=== PATIENT | male | born 1975 | race Caucasian/White ===

== ENCOUNTER 2020-07-19 17:39 | Outpatient (CLI) | payer BC, SELFPAY ==
--- NOTE | ~2020-07-19 | XR_ITS ---
EXAMINATION: XR chest 2V EXAM DATE: 07/19/2020 18:05 INDICATION: Cough and shortness of breath. Recent COVID-19 diagnosis. TECHNIQUE: Frontal and lateral projections of the chest obtained and reviewed. There is no prior abdias dy for comparison. FINDINGS: The lungs are clear. There are no pleural effusions. The cardiomediastinal silhouette is within normal limits. There is no pneumothorax suspected. The bones and soft tissues are unremarkab le. IMPRESSION: Normal chest x-ray exam. Reviewed, dictated and finalized at location A. IMPRESSION: Normal chest x-ray exam.
== END 2020-07-19 17:40 | disposition home or self-care (01) ==
PROVIDERS: PCP Family Medicine; Visit Provider Nurse Practitioner Family
DX: R05 Cough (principal); R06.02 Shortness of breath
CPT/HCPCS: 71046

== ENCOUNTER 2022-06-30 19:28 | Emergency (ER) | payer BC, SELFPAY ==
--- NOTE | 2022-06-30 19:31 | ED.EXTPRO ---
HPI - Extremity Problem General Chief complaint: Skin/Abscess/Foreign Body Stated complaint: left foot infection Time Seen by Provider: 06/30/22 19:34 Source: patient, RN notes reviewed and old records reviewed Mode of arrival: ambulatory Limitations: no limitations History of Present Illness HPI Narrative: 46-year-old male presents to the [facility] with a infection to his left toe between toes 3 ,4 and 5. Has swelling. Reports taking amoxicillin that was leftover , someone else's prescription with no relief. Symptoms started a week ago's today. Has been pouring alcohol and peroxide on it hoping to dried up. Also has been applying a cream. States is becoming more discomfort. Has full range of motion, positive pedal pulse. Sensation intact in all 5 toes with capillary refill under 2 seconds. Related Data Allergies Allergy/AdvReac Type Severity Reaction Status Date / Time No Known Allergies Allergy Verified 06/30/22 19:31 Review of Systems Review of Systems: All systems reviewed & are unremarkable except as noted in HPI and below Constitutional: Constitutional: Reports no additional constitutional complaints, Denies chills and Denies fever(s) Eyes: Eyes: Reports no additional eye complaints ENT: Reports system reviewed and no additional complaints, except as documented Cardiovascular: Cardiovascular: Reports no additional cardiovascular complaints Respiratory: Respiratory: Reports no additional respiratory complaints Gastrointestinal: Gastrointestinal: Reports no additional gastrointestinal complaints Musculoskeletal: Musculoskeletal: Reports no additional musculoskeletal complaints Integumentary/Breasts: Skin/Breast: Reports as per HPI Neurologic: Reports system reviewed and no additional complaints, except as documented Psychiatric: Psychiatric: Reports no additional psychiatric complaints Allergic/Immunologic: Allergic/Immunologic: Reports no additional allergic/immunologic complaints [facility] Past Medical History Medical History BMI 29.0-29.9,adult BMI 30.0-30.9,adult Family History Family History Mother Hypertension Grandparent Cerebrovascular accident Social History Social History Smoking status: Never smoker Alcohol intake: never Comments At the time of my signature, I reviewed and agree with the nursing past medical, surgical, social, and family history. There is no relevant family history pertinent to the patient complaint. Exam Const: General: healthy appearing, no acute distress and alert Nutritional Appearance: well nourished Orientation/consciousness: patient oriented x3 Limitations: no limitations HENMT: Head: normal to inspection Ears: external ears normal General nose exam: Normal external nose present Eyes: General: appearance normal, both eyes and all related structures Pupils: Equal, round and reactive pupils present Neck: Neck: normal visual inspection, no lymphadenopathy and no meningeal signs Chest: Chest palpation & inspection: normal inspection of the chest Resp: Effort & Inspection: normal respiratory effort and no use of accessory muscles Auscultation: clear to auscultation bilaterally, no crackles, no rales, no rhonchi and no wheezes Cardio: Rate: regular rate Rhythm: regular rhythm GI: GI Palp: Yes Soft to palpation and No Tenderness to palpation present (GI) Back/Spine/Pelvis: Cervical Spine: normal cervical lordosis Thoracic/Lumbar Spine: thoracic and lumbar spine normal to inspection Skin: General skin exam: normal color Rashes: no rashes Wounds: no wounds Other: Peeling, dry, cracked skin between toes 3 and 4 and 4 and 5. No increase with redness, mild swelling noted to the dorsal and plantar aspect of the area. Neuro: General: patient oriented x3, moves all extremities, no meninge
[2022-06-30 19:38] VITALS: BP 170/96; PULSE 101; RESP 16; TEMP 37; O2SAT 99
== END 2022-06-30 19:50 | disposition home or self-care (01) ==
PROVIDERS: Emergency Provider Nurse Practitioner; PCP Family Medicine
DX: B35.3 Tinea pedis (principal); G47.00 Insomnia, unspecified
CPT/HCPCS: 99213; G0463

== ENCOUNTER 2022-10-16 15:00 | Outpatient (RCR) | payer OTHER, SELFPAY ==
--- NOTE | 2022-10-11 15:42 | OTOPEVAL1 ---
Assessment and note entered by REJI Monaco/Cam, CHT Evaluation Information Assessment Status Evaluation Diagnosis Left wrist sprain Onset Sep 05, 2022 Subjective Information Patient had a hyperextension injury to the left wrist and since has been experiencing pain and popping in the dorsal wrist. Reports difficulties with pinching, buttoning, opening containers. Overall reports the pain has improved, however he continues to experience residual sudden pains with certain motions. He has a referral to follow up with hand specialist, Dr. Roth. Reported Pain Level Pain Score 4: Self Report Additional Pain Score Comments Typically has no pain at rest. Onset of pain with wrist extension, especially with resistance. Assessment OT Clinical Summary Inocencio is a 47 year-old, right hand dominate male who is referred to hand therapy following a hyperextension injury to the left wrist ~4.5 weeks ago. He continues to experience pain and popping on the dorsum of the wrist. Testing today was negative for SL ligament tear. Assessment of muscle strength testing, palpation, and functional limitations, he appears to have tendonitis of the 1st and 2nd dorsal compartments of the wrist. It was recommended that he continue to immobilize the wrist with his wrist cock up brace and complete massage to this area. As pain and popping subside, he is to complete ROM for tendon glide. Plan to continue to see the patient 1x/week for 4 weeks to progress therapeutic exercise as tolerated as well as utilize modalities and manual therapy techniques to reduce pain. Plan of Care Interventions Therapeutic Exercise,Manual Therapy,Hot Pack/Cold Pack,Ultrasound,Paraffin OT Services Indicated Yes Treatment Frequency and 1x/week for 4 weeks Duration These treatments will address the objective and functional deficits as defined above. The patient will be advanced safely and appropriately in order for the patient to progress towards his/her prior level of function. Additional exercises will be introduced and as well as a comprehensive home exercise program upon discharge, if needed, ?to ensure carryover of functional gains achieved in the clinic. This treatment plan has been reviewed and agreement upon by the patient.
--- NOTE | 2022-10-21 09:46 | PCOTNOTE ---
Followed up with the patient via phone call today regarding his initial visit with Dr. Roth. He is going to have an MRI of the wrist. Plan to hold therapy for now until we have MRI results.
--- NOTE | 2022-11-08 15:44 | OTOPDC ---
Assessment and note entered by REJI Monaco/Cam, CHT Evaluation Information Assessment Status Discharge Assessment OT Clinical Summary Patient was initially evaluated on 10/11/22 and attended 1 follow up appointment. It was decided that he should follow up with a hand specialist as well as receive and MRI of the wrist due to ongoing pain with therapy. He called today to report that the MRI shows ligament tear in the wrist and will be discussing his options with the surgeon. No further therapy indicated at this time. Plan of Care OT Services Indicated No
== END 2022-12-25 11:40 | disposition home or self-care (01) ==
LOC: ANHOT 15:00
PROVIDERS: PCP Family Medicine; Visit Provider Family Medicine
DX: S69.92XD Unspecified injury of left wrist, hand and finger(s), subsequent encounter (principal)
CPT/HCPCS: 97018; 97110; 97140; 97165

== ENCOUNTER → 2022-11-02 11:15 | Outpatient (CLI) | payer OTHER, SELFPAY ==
--- NOTE | ~2022-11-02 | MR_ITS ---
EXAMINATION: MR wrist LT wo con DATE: 11/02/2022 12:08 INDICATION: Left wrist pain. TECHNIQUE: Magnetic resonance imaging (MRI) of the wrist was performed without intravenous contrast. Sequences performed include coronal T1-weighted FSE, coronal PD-weighted FS FSE, axial PD-weighted FS FSE, axial PD-weighted FSE, sagittal PD-weighted FSE, and sagittal PD-weighted FS FSE. COMPARISON: None FINDINGS: Intrinsic ligaments: There is a full-thickness tear of scapholunate ligament. Lunotriquetral ligament is intact. Triangular fibrocartilage complex (TFCC): There is degeneration of triangular fibrocartilage. Extensor wrist: The extensor tendons are normal. Flexor wrist: The flexor tendons are normal. Median nerve is normal. Guyon's canal: Ulnar nerve is normal. Bones/other: There is dorsal tilt of lunate. There is widening of scapholunate joint. There is a subchondral cyst in lunate at its radial aspect. There is moderate osteoarthritis of triscaphe joint. There is partial -thickness cartilage loss of proximal capitate. There is shallow partial-thickness cartilage loss of proximal scaphoid. There is mild osteoarthritis of first carpometacarpal joint. There is edema-like m arrow signal intensity in the ulnar styloid. There is a small effusion of radiocarpal and midcarpal c ompartments. IMPRESSION: 1. 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 Reviewed, dictated and finalized at location A. 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
== END ==
PROVIDERS: PCP Family Medicine
DX: M19.032 Primary osteoarthritis, left wrist (principal)
CPT/HCPCS: 73221

== ENCOUNTER 2023-03-08 17:46 | Emergency (ER) | payer BC, SELFPAY ==
[2023-03-08 18:06] VITALS: BP 140/90; PULSE 93; RESP 16; TEMP 37.3; O2SAT 98
--- NOTE | 2023-03-08 18:11 | ED.URI ---
HPI - URI/Sore Throat General Chief Complaint: Upper Respiratory Infection Stated Complaint: chest bryson,cough Time Seen by Provider: 03/08/23 18:11 Source: patient, RN notes reviewed and old records reviewed Mode of arrival: ambulatory Limitations: no limitations History of Present Illness HPI Narrative: 47-year-old male presents to the [facility] with complaints of cough, congestion, feeling unwell. Still has some is a really started as sinus issues, allergies approximately 10 days ago. Over the last 2-3 days has developed into chest congestion, of green productive cough. Denies any fevers, chest pain, abdominal pain. Patient states he has tried multiple [id number] products to include Mucinex with no relief. Onset (ago): week(s) (2) Related Data Allergies Allergy/AdvReac Type Severity Reaction Status Date / Time No Known Allergies Allergy Verified 03/08/23 17:56 Review of Systems Review of Systems: All systems reviewed & are unremarkable except as noted in HPI and below Constitutional: Constitutional: Reports no additional constitutional complaints Eyes: Eyes: Reports no additional eye complaints ENT: Reports as per HPI Cardiovascular: Cardiovascular: Reports no additional cardiovascular complaints, Denies chest pain and Denies dyspnea Respiratory: Respiratory: Reports as per HPI, Denies chest congestion, Reports cough and Denies dyspnea Gastrointestinal: Gastrointestinal: Reports no additional gastrointestinal complaints, Denies abdominal pain, Denies nausea and Denies vomiting Musculoskeletal: Musculoskeletal: Reports no additional musculoskeletal complaints Integumentary/Breasts: Skin/Breast: Reports system reviewed and no additional complaints, except as docu Neurologic: Reports system reviewed and no additional complaints, except as documented Psychiatric: Psychiatric: Reports no additional psychiatric complaints Allergic/Immunologic: Allergic/Immunologic: Reports no additional allergic/immunologic complaints [facility] Past Medical History Medical History BMI 29.0-29.9,adult BMI 30.0-30.9,adult Family History Family History Mother Hypertension Grandparent Cerebrovascular accident Father No problems noted. Sibling No problems noted. 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 There is no relevant family history pertinent to the patient complaint. Exam Const: General: cooperative, healthy appearing, comfortable, no acute distress, well developed, alert and well nourished Nutritional Appearance: well nourished Orientation/consciousness: patient oriented x3 Limitations: no limitations HENMT: Head: normal to inspection Ears: hearing grossly normal bilaterally, external ears normal, TM's normal bilaterally and EAC's normal Face/Nose/Sinus: Normal external nose present, Normal nares present, Normal nasal mucous membranes and turbinates present and normal facial exam Face and sinus: normal facial exam Mouth: Yes Normal oral and palatal mucosa present, Yes lip normal and Ye
== END 2023-03-08 18:33 | disposition home or self-care (01) ==
PROVIDERS: Emergency Provider Nurse Practitioner; PCP Family Medicine
DX: J40 Bronchitis, not specified as acute or chronic (principal)
CPT/HCPCS: 99213; G0463

== ENCOUNTER 2023-12-11 16:01 | Outpatient (CLI) | payer BC, SELFPAY ==
--- NOTE | ~2023-12-11 | US_ITS ---
EXAMINATION: US carotid duplex BI DATE: 12/11/2023 17:15 INDICATION: Headache. TECHNIQUE: Grayscale, color Doppler, and pulsed Doppler images of the cervical carotid arteries were obtained. The degree of vessel stenosis is placed in one of the following categories: normal, <50%, 5 0-69%, >=70% but less than near-occlusion, near-occlusion, or total occlusion. Note that percent sten osis relative to normal distal artery lumen diameter is indirectly measured from velocity measurement s as described by Alfonzo, et al. Radiology 2003; 229:[id number]. COMPARISON: None. FINDINGS: RIGHT: The right common carotid artery (CCA) peak systolic velocity (PSV) is 130 cm/s. The right internal ca rotid artery (ICA) PSV is 86 cm/s. The right ICA end-diastolic velocity (EDV) is 33 cm/s. The right I CA/CCA PSV ratio is 0.7. Grayscale and color Doppler images demonstrate no evident stenosis or plaque in the ICA. The external carotid artery (ECA) PSV is 90 cm/s. There is antegrade flow in the right v ertebral artery. LEFT: The left CCA PSV is 93 cm/s. The left ICA PSV is 68 cm/s. The left ICA EDV is 31 cm/s. The left ICA/C CA PSV ratio is 0.7. Grayscale and color Doppler images demonstrate no evident stenosis or plaque in the ICA. The ECA PSV is 65 cm/s. There is antegrade flow in the left vertebral artery. IMPRESSION: 1. No evident plaque or stenosis in the right internal carotid artery. 2. No evident plaque or stenosis in the left internal carotid artery. Reviewed, dictated and finalized at location A. TER [employer]
--- NOTE | 2023-12-11 16:07 | ECG_ITS ---
Measurements Intervals [place] Rate: 66 P: 33 IN: 134 QRS: 10 QRSD: 98 T: 20 QT: 370 QTc: 390 Interpretive Statements SINUS RHYTHM EARLY PRECORDIAL R/S TRANSITION MINIMAL Q WAVES- HIGH LATERAL LEADS BORDERLINE ECG NO PREVIOUS ECG AVAILABLE FOR COMPARISON Electronically Signed On 12-11-2023 18:27:09 FINANCIAL LEGAL ASSISTANT by Humble Pope D.O.
== END 2023-12-11 16:02 | disposition home or self-care (01) ==
PROVIDERS: PCP Family Medicine; Visit Provider Physician Assistant
DX: G44.209 Tension-type headache, unspecified, not intractable (principal); R93.1 Abnormal findings on diagnostic imaging of heart and coronary circulation; I10 Essential (primary) hypertension
CPT/HCPCS: 93005; 93880

== ENCOUNTER 2025-09-14 09:42 | Outpatient (CLI) | payer BC, SELFPAY ==
--- NOTE | ~2025-09-14 | XR_ITS ---
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 Findings: No acute fracture or malalignment. No significant degenerative changes. Soft tissues unremarkable. Impression: No acute fracture or malalignment. Reviewed, dictated and finalized at location P. OR FIELD ENGINEER Impression: No acute fracture or malalignment.
== END 2025-09-14 09:43 | disposition home or self-care (01) ==
LOC: MICIMG 09:43
PROVIDERS: PCP Family Medicine; Visit Provider Nurse Practitioner Family
DX: M25.531 Pain in right wrist (principal)
CPT/HCPCS: 73110